=== PATIENT | female | born 1985 | race Hispanic/Latino ===

== ENCOUNTER 2022-03-05 00:09 | Emergency (ER) | payer OTHER ==
[~2022-03-05] VITALS: Ht 170.2 cm; Wt 129.3 kg
[2022-03-05 00:48] LABS: APPEARANCE,URINE CLEAR (CLEAR); BILIRUBIN,URINE NEGATIVE (NEGATIVE); COLOR,URINE LIGHT-YELLOW (YELLOW); GLUCOSE, URINE (UA) NEGATIVE (NEGATIVE); KETONES,URINE NEGATIVE (NEGATIVE); LEUKOCYTE ESTERASE ,URINE NEGATIVE Leu/uL (NEGATIVE); NITRATE,URINE NEGATIVE (NEGATIVE); OCCULT BLOOD,URINE NEGATIVE (NEGATIVE); PH,URINE 5.5 (5.0-8.0); PROTEIN,URINE NEGATIVE (NEGATIVE); UROBILINOGEN,URINE 0.2 mg/dL (0.2-1.0)
[2022-03-05 00:56] LABS: HCG,QUALITATIVE URINE NEGATIVE (NEGATIVE)
[2022-03-05 00:59] LABS: CREATININE 0.8 mg/dL (0.5-1.5); POTASSIUM 3.7 mmol/L (3.5-5.1)
[2022-03-05] MEDS ORDERED: METOCLOPRAMIDE 10 MG/2 ML VIAL IVP ONE (01:00)
[2022-03-05] MEDS ORDERED: KETOROLAC 30MG VIAL (30MG/ML) IVP ONE (01:00)
[2022-03-05] MEDS ORDERED: DiphenhydrAMINE HCL 50 MG/ML VIAL IV ONE (01:00)
[2022-03-05] MEDS ORDERED: 0.9%NACL 1000ML 1,000 ML IV SCH (01:00)
[2022-03-05 01:04] LABS: TOTAL PROTEIN, SERUM 8.2 g/dL (6.0-8.3)
[2022-03-05 01:11] LABS: BASOPHILS % (AUTO) 0.7 % (0.0-5.0); EOSINOPHILS % (AUTO) 2.1 % (0.0-8.0); HEMATOCRIT 42.6 % (36-48); LYMPHOCYTES % (AUTO) 29.6 % (21.0-51.0); MEAN CORPUSCULAR HEMOGLOBIN 28.9 pg (27.0-33.0); MEAN CORPUSCULAR HGB CONC 32.6 g/dL (32.0-36.0); MEAN CORPUSCULAR VOLUME 88.6 fL (79-99); NEUTROPHILS % (AUTO) 60.2 % (40.0-77.0); PLATELET COUNT (AUTO) 334 K/uL (130-400); RED BLOOD CELL COUNT(AUTO) 4.81 MIL/uL (4.00-5.50); RED CELL DISTRIBUTION WIDTH 12.5 % (11.0-15.5); WHITE BLOOD COUNT (AUTO) 9.1 K/uL (4.8-10.8)
[2022-03-05 02:28] VITALS: BP 105/63
[2022-03-05] MEDS ORDERED: IBUP-1493 PO (02:31)
== END 2022-03-05 02:47 | disposition home or self-care (01) ==
LOC: EDH 00:09
DX: G43.919 Migraine, unspecified, intractable, without status migrainosus (principal); Z90.89 Acquired absence of other organs; Z88.8 Allergy status to other drugs, medicaments and biological substances; Z20.822 Contact with and (suspected) exposure to COVID-19
CPT/HCPCS: 99285; 70450; 96374; 96375; 87635; 96361; 82550; 84484; 80053; 85025; 85651; 87804 ×2; 84146; 81003; 81025; 36415; 72125; 93005; C9803; J1200; J7030; J1885; J2765

== ENCOUNTER 2022-06-17 23:39 | Emergency (ER) | payer OTHER ==
[~2022-06-17] VITALS: Ht 170.2 cm; Wt 137.0 kg
[~2022-06-17 23:39] MED LIST: IBUP-1493 PO
[2022-06-18 02:12] VITALS: BP 145/88
[2022-06-18] MEDS ORDERED: IBUP-2070 PO (02:16)
== END 2022-06-18 02:21 | disposition home or self-care (01) ==
LOC: EDH 23:39
DX: J06.9 Acute upper respiratory infection, unspecified (principal); Z79.1 Long term (current) use of non-steroidal anti-inflammatories (NSAID); Z20.822 Contact with and (suspected) exposure to COVID-19
CPT/HCPCS: 99283; 87635; 87804 ×2; C9803